=== PATIENT | male | born 1990 | race Caucasian/White ===

== ENCOUNTER 2022-01-09 11:24 | Emergency (ER) | payer OTHER ==
[~2022-01-09] VITALS: Ht 165.1 cm; Wt 65.0 kg
[2022-01-09 11:30] VITALS: BP 123/66
[2022-01-09] MEDS ORDERED: BACITRACIN ZINC OINT UDPKT TOP ONE (12:15)
[2022-01-09] MEDS ORDERED: BACI28.32 TP (12:58)
== END 2022-01-09 13:08 | disposition home or self-care (01) ==
LOC: ER 11:24
DX: S80.812A Abrasion, left lower leg, initial encounter (principal); X58.XXXA Exposure to other specified factors, initial encounter; Y93.89 Activity, other specified; Y92.89 Other specified places as the place of occurrence of the external cause; Y99.8 Other external cause status
CPT/HCPCS: 99283; Z7610

== ENCOUNTER 2023-11-30 12:46 | Emergency (ER) | payer MEDICAID ==
[~2023-11-30] VITALS: Ht 162.6 cm; Wt 140.0 kg
[~2023-11-30 12:46] MED LIST: BACI28.32 TP
[2023-11-30 13:25] VITALS: BP 129/81; PULSE 88; RESP 18; TEMP 98.2; O2SAT 99
[2023-11-30] MEDS: LIDOCAINE HCL/PF 1% 10 MG/ML 5ML VIAL INFIL ONE (14:45)
[2023-11-30] MEDS: TETANUS, DIPHTHERIA, PERTUSSIS VAC/PF 0.5ML (>10YR OLD) IM ONE (14:45)
[2023-11-30] MEDS ORDERED: CEPH500C2 MT (15:51)
== END 2023-11-30 16:03 | disposition home or self-care (01) ==
LOC: ER 14:05
DX: S81.012A Laceration without foreign body, left knee, initial encounter (principal); Z86.59 Personal history of other mental and behavioral disorders; X58.XXXA Exposure to other specified factors, initial encounter; Y93.89 Activity, other specified; Y92.89 Other specified places as the place of occurrence of the external cause; Y99.8 Other external cause status
CPT/HCPCS: 73562; 90715; 12001; 90471; 99283; J3490; Z7610 ×3